=== PATIENT | male | born 1960 | race Caucasian/White ===

== ENCOUNTER 2021-03-17 09:47 | Outpatient (CLI) | payer MEDICARE, SELFPAY ==
--- NOTE | ~2021-03-17 | MR_ITS ---
EXAMINATION: MR knee RT wo con DATE: 03/17/2021 10:50 INDICATION: Right knee pain, unspecified chronicity.. TECHNIQUE: Magnetic resonance imaging (MRI) of the right knee was performed without intravenous contr ast. Sequences included axial PD-weighted FS FSE, coronal PD-weighted FSE and PD-weighted FS FSE, sag ittal PD-weighted FSE, and sagittal T2-weighted FS FSE. COMPARISON: None. FINDINGS: Medial compartment: There is a complex tear involving body and posterior horn of medial meniscus. There is partial-thickn ess cartilage loss of tibial condyle, deep at the posterior and medial articular surface where there is mild subchondral edema-like marrow signal intensity. There is partial-thickness cartilage loss of femoral condyle, deep at the central and medial articular surface. There is a subchondral insufficien cy fracture of medial femoral condyle involving the medial articular surface characterized by subchon dral low signal line and surrounding edema-like marrow signal intensity. Lateral compartment: There is a complex tear of posterior horn and posterior root of lateral meniscus. There is shallow pa rtial-thickness cartilage loss of tibial condyle. There is partial-thickness cartilage loss of femora l condyle, deep at the central articular surface. Patellofemoral compartment: There is cartilage surface irregularity of patella. There is partial-thickness cartilage loss of troc hlea, deep at the central and medial trochlea where there is mild subchondral edema-like signal inten sity. Ligaments and tendons: The anterior cruciate ligament is intact. There are changes of low-grade sprain of posterior cruciate ligament characterized by increased signal intensity. There are changes of prior sprain of medial co llateral ligament characterized by thickening and increased signal intensity. Edema around medial col lateral ligament is likely from the insufficiency fracture of medial femoral condyle. The lateral col lateral ligament complex is intact. There is mild patellar tendinopathy. Fluid: There is a small knee joint effusion. There is a moderate-sized Nugent's cyst. IMPRESSION: 1. Subchondral insufficiency fracture of medial femoral condyle. 2. Moderate tricompartmental chondrosis. 3. Tears of medial and lateral menisci. 4. Small knee joint effusion. 5. Moderate-sized Nugent's cyst. Reviewed, dictated and finalized at location A. [facility]
== END 2021-03-17 09:48 | disposition home or self-care (01) ==
PROVIDERS: Visit Provider Orthopaedic Surgery
DX: M25.461 Effusion, right knee (principal); M71.21 Synovial cyst of popliteal space [Baker], right knee; S83.281A Other tear of lateral meniscus, current injury, right knee, initial encounter; S83.241A Other tear of medial meniscus, current injury, right knee, initial encounter; M84.48XA Pathological fracture, other site, initial encounter for fracture
CPT/HCPCS: 73721